=== PATIENT | male | born 1950 | race Caucasian/White ===

== ENCOUNTER 2020-12-15 14:39 | Emergency (ER) | payer MEDICARE, BC ==
[2020-12-15] MEDS ORDERED: Bacitracin Oint 1 GM U/D Packet TOP ONE (15:34)
[2020-12-15] MEDS ORDERED: Diphtheria,Pertussis(Acell),Tetanus Vaccine 0.5 ML Syringe IM ONE (15:34)
--- NOTE | 2020-12-15 15:39 | EDM.PDOC ---
ED HPI GENERAL MEDICAL PROBLEM - General Chief Complaint: General Stated Complaint: FELL Time Seen by Provider: 12/15/20 15:20 Source of Information: Reports: Patient, RN History Limitations: Reports: No Limitations - History of Present Illness INITIAL COMMENTS - FREE TEXT/NARRATIVE: 70 yo male fell on a concrete surface today abrading his L knee, both palms, and his R synagogue area. No LOC, PETERSEN, nausea or neck pain. Does not know his tetanus status. Is at treatment currently at [facility]. 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: Other (see below) (none) - Related Data Allergies Allergy/AdvReac Type Severity Reaction Status Date / Time No Known Allergies Allergy Verified 12/15/20 15:19 Home Meds: Home Meds NK [No Known Home Meds] 12/15/20 [History] Past Medical History Gastrointestinal History: Reports: Other (See Below) Other Gastrointestinal History: liver issues from drinking Neurological History: Reports: Migraines Psychiatric History: Reports: Addiction - Infectious Disease History Infectious Disease History: Reports: Chicken Pox, Measles, Mumps ED ROS GENERAL - Review of Systems Review Of Systems: See Below Constitutional: Reports: No Symptoms HEENT: Reports: No Symptoms Respiratory: Reports: No Symptoms Cardiovascular: Reports: No Symptoms GI/Abdominal: Reports: No Symptoms Musculoskeletal: Denies: Neck Pain, Joint Pain Skin: Reports: Wound (abrasions of the L patella, both palms, and R synagogue areas. ) Neurological: Reports: No Symptoms Psychiatric: Reports: No Symptoms ED EXAM, GENERAL - Physical Exam Exam: See Below Exam Limited By: No Limitations General Appearance: Alert, WD/WN, No Apparent Distress Eye Exam: Bilateral Eye: Normal Inspection, PERRL Ears: Normal External Exam, Normal Canal, Hearing Grossly Normal, Normal TMs Ear Exam: Bilateral Ear: Auricle Normal, Canal Normal, TM normal Nose: Normal Inspection, No Blood Throat/Mouth: Normal Inspection, Normal Lips, Normal Oropharynx, Normal Voice, No Airway Compromise Head: Atraumatic, Normocephalic Neck: Normal Inspection, Supple, Non-Tender, Full Range of Motion Respiratory/Chest: No Respiratory Distress, Lungs Clear, Normal Breath Sounds, No Accessory Muscle Use Cardiovascular: Regular Rate, Rhythm, No Edema Extremities: Normal Inspection, Normal Range of Motion, Non-Tender. No: Pedal Edema Neurological: Alert, Oriented, CN II-XII Intact, Normal Cognition, No Motor/Sensory Deficits Psychiatric: Normal Affect, Normal Mood Skin Exam: Warm, Dry, Normal Color, No Rash, Wound/Incision (abrasions of palms, L patella, and R synagogue areas. ) Course - Vital Signs Text/Narrative:: wounds cleaned and dressed per nursing. Last Recorded V/S: Last Vital Signs Temp 36.5 C 12/15/20 14:54 Pulse 71 12/15/20 14:54 Resp 16 12/15/20 14:54 BP 144/81 H 12/15/20 14:54 Pulse Ox 93 L 12/15/20 14:54 Departure - Departure Time of Disposition: 15:55 Disposition: Home, Self-Care 01 Condition: Fair Clinical Impression: Abrasions of multiple sites - Discharge Information *PRESCRIPTION DRUG MONITORING PROGRAM REVIEWED*: Not Applicable *COPY OF PRESCRIPTION DRUG MONITORING REPORT IN PATIENT GIGI: Not Applicable Referrals: PCP,None [Primary Care Provider] - Additional Instructions: Clean wounds twice daily with soap and water, dry, apply antibiotic ointment and a new dressing. Recheck for signs of infection. Acetaminophen as needed for pain relief. Sepsis Event Note (ED) - Focused Exam Vital Signs: Vital Signs Temp Pulse Resp BP Pulse Ox 12/15/20 14:54 36.5 C 71 16 144/81 H 93 L
== END 2020-12-15 17:31 | disposition home or self-care (01) ==
LOC: JP.ED 14:39
DX: S60.512A Abrasion of left hand, initial encounter (principal); S60.511A Abrasion of right hand, initial encounter; S80.212A Abrasion, left knee, initial encounter; S00.81XA Abrasion of other part of head, initial encounter; Z23 Encounter for immunization; W22.8XXA Striking against or struck by other objects, initial encounter
CPT/HCPCS: 90471; 90715; 99283